=== PATIENT | male | born 1950 | race Caucasian/White ===

== ENCOUNTER 2017-06-25 09:43 | Emergency (ER) | payer OTHER, MEDICAID ==
[~2017-06-25] VITALS: Ht 177.8 cm; Wt 94.1 kg
[~2017-06-25 09:43] MED LIST: CARI350T PO; ENAL5TAB PO; ESOM20CA PO; INSU100V8 SQ; METF10002 PO; METO25TA35 PO; METO50TA82 PO; PREG100C PO; SERT50TA5 PO; TAMS-11 PO; [UNRECOGNIZED DRUG - REMARK] PO
[2017-06-25 09:45] VITALS: BP 125/77
[2017-06-25] MEDS ORDERED: MAGNESIUM CITRATE 300ML ORAL SOL ONE (11:59)
[2017-06-25] MEDS ORDERED: MAGNESIUM CITRATE 300ML ORAL SOL PO ONE (12:00)
[2017-06-25] MEDS ORDERED: METHYLNALTREXONE 12 MG/0.6 ML SQ ONE (12:00)
[2017-06-26] MEDS ORDERED: INSU100C5 SQ-INSULIN (17:34)
[2017-06-26] MEDS ORDERED: METO-99 PO (17:34)
[2017-06-26] MEDS ORDERED: INSU100V8 SQ (17:34)
== END 2017-06-25 12:13 | disposition home or self-care (01) ==
LOC: ED 11:15
DX: K59.00 Constipation, unspecified (principal); J44.9 Chronic obstructive pulmonary disease, unspecified; E11.9 Type 2 diabetes mellitus without complications; I25.10 Atherosclerotic heart disease of native coronary artery without angina pectoris
CPT/HCPCS: 74020; 96372

== ENCOUNTER 2017-06-30 16:51 | Emergency (ER) | payer OTHER, MEDICAID ==
[~2017-06-30] VITALS: Ht 180.3 cm; Wt 89.6 kg
[~2017-06-30 16:51] MED LIST changes: +INSU100C5 SQ-INSULIN; +METO-99 PO
[2017-06-30 17:44] LABS: HEMATOCRIT 43.3 % (39.2-51.8); HEMOGLOBIN 14.5 g/dL (13.7-18.0); WHITE BLOOD COUNT 7.8 x10^3/uL (3.4-10)
[2017-06-30 17:53] LABS: BLOOD UREA NITROGEN 10 mg/dL (7-18)
[2017-06-30 17:58] LABS: ASPARTATE AMINO TRANSFERASE 19 U/L (15-37)
[2017-06-30 20:20] VITALS: BP 98/66
[2017-06-30] MEDS ORDERED: OMNIPAQUE 350 MG/ML, 100ML BOTTLE ONE (20:26)
== END 2017-06-30 20:56 | disposition home or self-care (01) ==
LOC: ED 17:48
DX: K56.60 Unspecified intestinal obstruction (principal); K59.00 Constipation, unspecified; E86.0 Dehydration; D72.829 Elevated white blood cell count, unspecified; I25.10 Atherosclerotic heart disease of native coronary artery without angina pectoris; E11.9 Type 2 diabetes mellitus without complications; J44.9 Chronic obstructive pulmonary disease, unspecified; I25.2 Old myocardial infarction; F17.200 Nicotine dependence, unspecified, uncomplicated
CPT/HCPCS: 36415; 74020; 74177; 80053; 85025; 99285; Q9967

== ENCOUNTER 2017-09-25 15:21 | Emergency (ER) | payer OTHER, MEDICAID ==
[~2017-09-25] VITALS: Ht 177.8 cm; Wt 92.4 kg
[2017-09-25] MEDS ORDERED: ASPIRIN 81 MG TABLET CHEW PO ONE (16:00)
[2017-09-25 16:16] LABS: HEMATOCRIT 43.5 % (39.2-51.8); HEMOGLOBIN 14.7 g/dL (13.7-18.0); WHITE BLOOD COUNT 4.7 x10^3/uL (3.4-10)
[2017-09-25 16:21] LABS: BLOOD UREA NITROGEN 13 mg/dL (7-18)
[2017-09-25 16:25] LABS: IS PT STATUS REG ER OR PRE ER? YES
[2017-09-25] MEDS ORDERED: ALBUTEROL/IPRATROPIUM 2.5MG/0.5MG, 3 ML NPPB ONE (18:30)
[2017-09-25 18:38] VITALS: BP 112/76
== END 2017-09-25 19:22 | disposition home or self-care (01) ==
LOC: ED 18:34
DX: J15.9 Unspecified bacterial pneumonia (principal); J44.1 Chronic obstructive pulmonary disease with (acute) exacerbation; E11.65 Type 2 diabetes mellitus with hyperglycemia; I25.10 Atherosclerotic heart disease of native coronary artery without angina pectoris; I25.2 Old myocardial infarction
CPT/HCPCS: 36415; 71020; 80048; 82040; 84484; 85025; 93005; 99285; J7512

== ENCOUNTER 2017-12-26 17:06 | Emergency (ER) | payer OTHER, MEDICAID ==
[~2017-12-26] VITALS: Ht 177.8 cm; Wt 102.5 kg
[2017-12-26 17:07] VITALS: BP 133/97
== END 2017-12-26 17:44 | disposition home or self-care (01) ==
LOC: ED 17:35
DX: Z76.0 Encounter for issue of repeat prescription (principal); E11.9 Type 2 diabetes mellitus without complications; J44.9 Chronic obstructive pulmonary disease, unspecified; F17.200 Nicotine dependence, unspecified, uncomplicated; I25.10 Atherosclerotic heart disease of native coronary artery without angina pectoris; I25.2 Old myocardial infarction
CPT/HCPCS: 99283

== ENCOUNTER 2018-05-15 10:44 | Emergency (ER) | payer MEDICARE, MEDICAID ==
[~2018-05-15] VITALS: Ht 177.8 cm; Wt 95.5 kg
[2018-05-15 10:50] VITALS: BP 120/71
[2018-05-15] MEDS ORDERED: METHOCARBAMOL 750 MG TABLET ONE (11:48)
[2018-05-15] MEDS ORDERED: IBUPROFEN 200 MG TABLET ONE (11:48)
[2018-05-15] MEDS ORDERED: IBUPROFEN 200 MG TABLET PO ONE (12:00)
[2018-05-15] MEDS ORDERED: METHOCARBAMOL 750 MG TABLET PO ONE (12:00)
== END 2018-05-15 12:49 | disposition home or self-care (01) ==
LOC: ED 11:15
DX: S76.312A Strain of muscle, fascia and tendon of the posterior muscle group at thigh level, left thigh, initial encounter (principal); E11.65 Type 2 diabetes mellitus with hyperglycemia; R10.32 Left lower quadrant pain; W22.8XXA Striking against or struck by other objects, initial encounter; Y93.89 Activity, other specified; Y92.009 Unspecified place in unspecified non-institutional (private) residence as the place of occurrence of the external cause; Y99.8 Other external cause status
CPT/HCPCS: 99283

== ENCOUNTER 2018-09-04 17:47 | Emergency (ER) | payer MEDICAID, MEDICARE, OTHER ==
[~2018-09-04] VITALS: Ht 177.8 cm; Wt 95.0 kg
[2018-09-04 19:07] LABS: BASOPHILS # (AUTO) 0.04 x10^3/uL (0-0.1); BASOPHILS % (AUTO) 1 % (0-1); EOSINOPHILS # (AUTO) 0.21 x10^3/uL (0-0.4); EOSINOPHILS % (AUTO) 4 % (1-7); LYMPHOCYTES # (AUTO) 1.56 x10^3/uL (1-3.4); LYMPHOCYTES % (AUTO) 26 % (22-44); MD NO; MEAN CORPUSCULAR HEMOGLOBIN 30.2 pg (27.5-34.5); MEAN CORPUSCULAR HGB CONC 33.4 g/dL (33.2-36.2); MEAN CORPUSCULAR VOLUME 90.3 fL (81-97); MEAN PLATELET VOLUME 9.4 fL (7.4-10.4); MONOCYTES # (AUTO) 0.85 x10^3/uL (0.2-0.8); MONOCYTES % (AUTO) 14 % (2-9); NEUTROPHILS # (AUTO) 3.32 x10^3/uL (1.8-6.8); NEUTROPHILS % (AUTO) 56 % (42-75); PLATELET COUNT 130 x10^3/uL (130-400); RED BLOOD COUNT 4.96 x10^6/uL (4.38-5.82); RED CELL DISTRIBUTION WIDTH 14.7 % (9.4-14.8)
[2018-09-04 19:15] LABS: ALANINE AMINOTRANSFERASE 28 U/L (12-78); ALBUMIN 3.6 g/dL (3.4-5.0); ANION GAP 9 mmol/L (5-15); CALCIUM 8.7 mg/dL (8.5-10.1); CHLORIDE 108 mmol/L (98-107); CREATININE 0.86 mg/dL (0.7-1.3)
[2018-09-04 19:19] LABS: ALKALINE PHOSPHATASE 98 U/L (45-117); BILIRUBIN,TOTAL 0.4 mg/dL (0.2-1.0); TOTAL PROTEIN 7.5 g/dL (6.4-8.2); TROPONIN I < 0.015 ng/mL (0.000-0.045)
[2018-09-04 19:49] VITALS: BP 128/77
== END 2018-09-04 20:52 | disposition home or self-care (01) ==
LOC: ED 20:46
DX: J06.9 Acute upper respiratory infection, unspecified (principal); I25.10 Atherosclerotic heart disease of native coronary artery without angina pectoris; I10 Essential (primary) hypertension; E11.9 Type 2 diabetes mellitus without complications; J44.9 Chronic obstructive pulmonary disease, unspecified
CPT/HCPCS: 36415; 71045; 80053; 83880; 84484; 85025; 93005; 99285

== ENCOUNTER 2019-02-15 15:11 | Emergency (ER) | payer MEDICARE, MEDICAID ==
[~2019-02-15] VITALS: Ht 177.8 cm; Wt 96.8 kg
[~2019-02-15 15:11] MED LIST changes: +SERT50TA28 PO; -SERT50TA5 PO
[2019-02-15 15:34] VITALS: BP 122/86
--- NOTE | 2019-02-15 15:50 | NUR ---
PT TO ED FOR REDNESS TO LEFT EYE WITH YELLOW "CRUSTIES" WHEN HE WAKES UP X2 DAYS. PT STATES NO PAIN OR SWELLING. VSS. AWAITING EDMD ASSESSMENT.
[2019-02-15] MEDS ORDERED: PROPARACAINE OPHTH 0.5%, 15ML ONE (16:03)
--- NOTE | 2019-02-15 16:53 | NUR ---
TASK RN: Patient/Caregiver given discharge instructions and they have confirmed that they understand the instructions. Patient ambulatory with steady gait.
== END 2019-02-15 17:00 | disposition home or self-care (01) ==
LOC: ED 16:50
DX: S60.012A Contusion of left thumb without damage to nail, initial encounter (principal); H10.022 Other mucopurulent conjunctivitis, left eye; I25.2 Old myocardial infarction; I10 Essential (primary) hypertension; I25.10 Atherosclerotic heart disease of native coronary artery without angina pectoris; E11.9 Type 2 diabetes mellitus without complications; J44.9 Chronic obstructive pulmonary disease, unspecified; W22.8XXA Striking against or struck by other objects, initial encounter; Y93.89 Activity, other specified; Y92.89 Other specified places as the place of occurrence of the external cause; Y99.8 Other external cause status
CPT/HCPCS: 99283

== ENCOUNTER 2021-02-19 04:46 | Emergency (ER) | payer MEDICARE ==
[~2021-02-19] VITALS: Ht 180.3 cm; Wt 88.2 kg
[~2021-02-19 04:46] MED LIST changes: -ENAL5TAB PO; +ENAL5TAB10 PO
[2021-02-19 04:48] VITALS: BP 113/81
== END 2021-02-19 06:22 ==
LOC: ED 06:05
DX: Z48.00 Encounter for change or removal of nonsurgical wound dressing (principal); I10 Essential (primary) hypertension; E11.9 Type 2 diabetes mellitus without complications; J44.9 Chronic obstructive pulmonary disease, unspecified; I25.2 Old myocardial infarction; I25.10 Atherosclerotic heart disease of native coronary artery without angina pectoris
CPT/HCPCS: 99281